=== PATIENT | female | born 1950 | race Two or more races ===

== ENCOUNTER 2020-06-28 15:25 | Outpatient (REF) | payer MEDICARE, SELFPAY ==
--- NOTE | 2020-06-28 15:34 | XR_ITS ---
EXAMINATION: XR HIP, RIGHT CLINICAL INFORMATION: Right hip pain COMPARISON: None TECHNIQUE: Two views of the right hip. FINDINGS: No fracture or dislocation. The right hip is well aligned. The joint space is maintained. Subchondral sclerosis is present. The right hemipelvis is intact. The bowel gas pattern is unremarkable. XR/XR hip RT min 2V IMPRESSION: Mild degenerative change of the right hip.
== END 2020-06-28 15:26 | disposition home or self-care (01) ==
LOC: HO.XRAY 15:25
PROVIDERS: PCP Family Medicine; Visit Provider Family Medicine
DX: M25.551 Pain in right hip (principal)
CPT/HCPCS: 73502

== ENCOUNTER → 2020-08-14 12:19 | Outpatient (BNVA) | payer MEDICARE, SELFPAY | PROVIDERS: PCP Family Medicine; Visit Provider Orthopaedic Surgery | DX: M25.551 Pain in right hip (principal) | CPT/HCPCS: 99202 ==

== ENCOUNTER 2020-10-25 10:32 | Outpatient (REF) | payer MEDICARE, SELFPAY ==
--- NOTE | ~2020-10-25 | MM_ITS ---
EXAMINATION: MM SCREENING DIGITAL BREAST TOMOSYNTHESIS, BILATERAL CLINICAL INFORMATION: Screening. Asymptomatic. The lifetime risk of breast cancer based on the Tyrer-Cuzick Model is 2.6%. COMPARISON: Mammography: December 20, 2019 and studies dating back to May 21, 2017 TECHNIQUE: Digital breast tomosynthesis is performed in both the craniocaudal and mediolateral oblique views along with computer-aided detection (CAD). Synthesized 2D images are generated from the tomosynthesis. Additional right exaggerated craniocaudal view performed. FINDINGS: The breasts are almost entirely fatty (ACR BI-RADS breast composition Category a). There are no significant masses, abnormal calcifications, or other abnormalities. MM/MM tomosynthesis screening BI IMPRESSION: There are no significant changes from prior study. ASSESSMENT: BI-RADS 1: Negative RECOMMENDATION: Routine annual mammography screening. This patient's information was entered into a reminder system with a target due date for their next mammogram.
== END 2020-10-25 10:33 | disposition home or self-care (01) ==
LOC: HO.MAMMO 10:32
PROVIDERS: Visit Provider Family Medicine
DX: Z12.31 Encounter for screening mammogram for malignant neoplasm of breast (principal)
CPT/HCPCS: 77063; 77067

== ENCOUNTER 2021-01-04 12:26 | Outpatient (REF) | payer MEDICARE, SELFPAY ==
--- NOTE | ~2021-01-04 | XR_ITS ---
EXAMINATION: XR LUMBOSACRAL SPINE CLINICAL INFORMATION: Left-sided sciatica COMPARISON: None TECHNIQUE: Three views of the lumbosacral spine. FINDINGS: There is curvature of the lower lumbar spine to the left. There is mild 3 mm anterior subluxation of L4 with respect L5. Bone alignment is otherwise normal. No fracture or dislocation is seen. There is multilevel degenerative disc disease. There is a lower lumbar spine facet arthritis. There is evidence of atherosclerotic disease. XR/XR lumbar spine 2-3V IMPRESSION: Curvature of the lumbar spine to the left and degenerative changes. No fracture seen.
[2021-01-04 13:17] LABS: MANUAL DIFF FLAG NO
[2021-01-04 13:20] LABS: Basophils Percent Auto 0.6 % (0-2); Eosinophils Absolute Auto 0.3 X10*3/uL (0.0-0.4); Eosinophils Percent Auto 4.5 % (0-4); Hematocrit 36.2 % (37-47); Hemoglobin 12.5 g/dl (12.0-16.0); Imm Gran Abs Auto 0.02 X10*3/uL (0.00-0.03); Imm Gran Pct Auto 0.3 % (0.0-0.4); Lymphocytes Absolute Auto 1.8 X10*3/uL (1.2-4.9); Lymphocytes Percent Auto 26.9 % (20-40); Mean Corpuscular HGB Conc 34.5 g/dl (31.0-35.0); Mean Corpuscular Hemoglobin 31.3 pg (27.0-33.0); Mean Corpuscular Volume 90.7 fL (80-98); Mean Platelet Volume 10.2 fL (9.4-12.3); Monocytes Absolute Auto 0.5 X10*3/uL (0.1-1.2); Monocytes Percent Auto 8.1 % (2-11); Neutrophils Absolute Auto 3.9 X10*3/uL (2.0-8.3); Neutrophils Percent Auto 59.6 % (45-73); Platelet Count 292 X10*3/uL (160-400); Red Blood Count 3.99 X10*6/uL (4.20-5.50); Red Cell Distribution Width 11.5 % (11.0-16.0); White Blood Count 6.5 X10*3/uL (4.8-10.8)
[2021-01-04 13:59] LABS: Anion Gap 11 (12-20); Blood Urea Nitrogen 26 mg/dL (9-16); Carbon Dioxide 28 mmol/L (22-29); Chloride 107 mmol/L (96-108); Erythrocyte Sedimentation Rate 33 MM/HR (0-20); Estimated Glomerular Filt Rate 57; Potassium 4.2 mmol/L (3.3-5.1); Sodium 142 mmol/L (135-145)
[2021-01-04 14:17] LABS: Glucose Urine UA NEG (NEG); Leukocyte Esterase Urine TRACE (NEG); Nitrite Urine NEG (NEG); PH 5.5 (5.0-8.0); Specific Gravity - Urine >= 1.030 (1.005-1.025); Urine Blood NEG (NEG); Urine Ketones NEG (NEG); Urine Protein NEG (NEG-TRACE)
[2021-01-04 14:18] LABS: Appearance Urine HAZY; Color Urine YELLOW
[2021-01-04 14:48] LABS: Bacteria Urine TRACE /LPF; Mucus Urine 1+ /LPF; RBC Urine 0 /HPF (0); Squamous Epithelial Cell Urine 1+ /LPF
[2021-01-05 13:36] LABS: IgA 569 mg/dL (70-320); IgG 1198 mg/dL (600-1540); IgM 105 mg/dL (50-300)
[2021-01-07 22:06] LABS: Prot Elec - Albumin 4.1 g/dL (3.8-4.8); Prot Elec - Alpha1 0.3 g/dL (0.2-0.3); Prot Elec - Alpha2 0.8 g/dL (0.5-0.9); Prot Elec - Beta 1 0.5 g/dL (0.4-0.6); Prot Elec - Beta 2 0.6 g/dL (0.2-0.5); Prot Elec - Total Protein 7.2 g/dL (6.1-8.1)
== END 2021-01-04 12:27 | disposition home or self-care (01) ==
LOC: HO.LAB 12:26
PROVIDERS: PCP Family Medicine; Visit Provider Family Medicine
DX: I10 Essential (primary) hypertension (principal); I77.6 Arteritis, unspecified; M54.32 Sciatica, left side
CPT/HCPCS: 36415; 72100; 80051; 81001; 82565; 82784; 84155; 84165; 84520; 85025; 85652

== ENCOUNTER 2021-07-01 09:56 | Day surgery (SDC) | payer MEDICARE, SELFPAY ==
--- NOTE | 2021-06-17 11:18 | CONS_ITS ---
DATE OF SERVICE: 07/01/2021 HISTORY OF PRESENT ILLNESS: This is a 71-year-old female who presents to my office on the 14 of June for preoperative consultation for cataract surgery booked for the 01 of July. She has generally been feeling okay. Her chief complaint is, intermittently her legs ache on ambulation, which is not a new problem. I reviewed her records and medications. PAST MEDICAL HISTORY: Includes high blood pressure, question of asthma (not anything recent), borderline cholesterol. She does have some lumbosacral degenerative changes and little spinal scoliosis, some obesity. Her more interesting problem is that, back about 8 years ago in [place], she had worked up for the fevers, arthralgias and rash and she was diagnosed as leukocytoclastic vasculitis. She was treated for that and has successfully put this under control. She has had very little problems since that time. A full workup was done at that time and I have all those results in my chart. Since she has become my patient, which is only the last few year, she moved here. She has done quite well. In looking back over all of her workups, she had an elevated C3 complement, but a normal C4. She had rheumatoid factor positive, but CCP negative. She was P and C ANCA negative. Hep B, C negative. Sjogren's syndrome and antiphospholipid syndrome negative. 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 Her present medications are mostly directed to her blood pressures. She is on diltiazem 360 mg daily and lisinopril 10 mg. She takes glucosamine for general arthritic pain and vitamin D and calcium, and that is about it for her medications. In general, the patient has been feeling better lately. Back has been bothering her too much and legs are not as bad as they used to be, although they still aches sometimes, does not specifically when she is walking. She has no numbness in legs. REVIEW OF SYSTEMS: SKIN: She has had no rashes of any kind. EAR, NOSE AND THROAT: Unremarkable EXTREMITIES: She has no edema. Aching in her legs are diffuse and very mild, nonspecific, only with ambulation, there are no signs of claudication. PULMONARY: No shortness of breath or wheezing. No history of asthma, but it has not been an issue in recent years. : She has some urge incontinence occasionally, but generally speaking she has no other symptoms. CARDIOVASCULAR: No chest pain or palpitations. NEURO: No headaches, dizziness, or falls. She thinks she off balance little bit from her legs, but on testing, we found that is not to be the case. GI: No heartburn or bowel changes. Other review of systems, which is relative to her diagnosis 8 years ago, she has no fevers or night sweats or any unusual skin changes. SOCIAL HISTORY: She is a nonsmoker, nondrinker. PHYSICAL EXAMINATION: GENERAL: We find pleasant, obese white female, in no acute distress. VITAL SIGNS: Her weight is 164, her height is 4 feet 11 inches. Her blood pressure is 132/82. HEENT: Conjunctivae pink, sclerae white. Mucous membranes are moist. Ears are clear. Left pupil is a little irregular, but there is some old left retinal detachment surgery. She does have arcus senilis. SKIN: No rashes, no skin changes, no petechiae or any other significant findings of vasculitis. NECK: Without lymphadenopathy, thyromegaly or neck vein distention. Carotids are 1+ without bruits. LUNGS: Clear. HEART: Sinus rhythm, 70. No murmurs, lifts, thrills, or abnormal heart sounds. ABDOMEN: Soft, nontender. No masses or organomegaly. RECTAL: Reveals no masses and hem negative. BACK: Unremarkable. LEGS: Palpably negative. She has some venous insufficiency without edema. She has minimal osteoarthritis. Distal pulses are 2+. Complete neurologic examination is intact. DIAGNOSES: 1. Hypertension. 2. Leukocytoclastic vasculitis present, inactive. 3. Osteoporosis by bone mineral density (T-score is less than -3). Takes calcium and vitamin D for that. 4. Remote history of asthma. 5. Nonspecific leg symptoms, which may or may not be related to neuropathy and/or sciatica. 6. High cholesterol, controlled by diet. 7. Positive rheumatoid factor without evidence of rheumatoid arthritis 8. Chronic venous insufficiency. PLAN: The patient is relatively stable. She has had no significant cardiovascular symptoms or signs of any rheumatoid disorder. She was cleared for surgery as she is low risk surgery and she is a low risk patient. MD DILAN Vela/MANJEETL / [phone] MTDD
[2021-06-24 10:00] VITALS: BMI 32.9
--- NOTE | 2021-06-28 08:33 | MHC.SHP ---
Pre-Procedural Eval Section A Date of Service: 06/28/21 The patient is an INPATIENT: No Changes since office visit: No Cold of Flu in the past 2 weeks, No New Medical Problems, No Changes in Medication and No Patient answered all questions The History & Physical has been completed within 30 days and I have reviewed it.: Yes Section B Chief Complaint: Left eye Cataract Allergies: Allergies Allergy/AdvReac Type Severity Reaction Status Date / Time No Known Allergies Allergy Verified 06/24/21 10:00 Plan Diagnosis/Plan: Unchanged I have reviewed the history and physical and performed a pertinent physical examination on my patient. No changes have occurred unless specified.
[2021-07-01 11:54] VITALS: BP 153/71; PULSE 67; RESP 18; TEMP 36.2; O2SAT 98
[2021-07-01] MEDS: Tetracaine HCl/PF 0.5% Oph Sol 4 ML DROPS 1 DROP EYE-LEFT (12:00)
[2021-07-01] MEDS: Lactated Ringers 500 ML 50 ML IVCONT (12:00)
[2021-07-01] MEDS: Phenylephrine HCL 2.5% Oph SoL 2 ML BOTTLE 1 DROP EYE-LEFT ×3 (12:01→12:03)
[2021-07-01] MEDS: Tropicamide 1 % Ophth Sol 3 ML BTL 1 DROP EYE-LEFT ×3 (12:01→12:03)
--- NOTE | 2021-07-01 12:27 | HO.ANESPROP2 ---
HPI - Anesthesia Eval Consult details Narrative: left eye cataract PMFSH Active Problems Active Problems: All Active Problems (Updated 06/24/21 @ 09:37 by Connie Wilson RN) Trochanteric bursitis, right hip (Acute) Past Medical History Medical History (Updated 06/24/21 @ 09:37 by Connie Wilson RN) Elevated cholesterol Hypertension Leg pain, bilateral Leukocytoclastic vasculitis Osteoporosis Family History Family history of problems with anesthesia: No Surgical History Surgical History (Updated 06/24/21 @ 09:59 by Connie Wilson RN) History of detached retina repair S/P carpal tunnel release History of Problems with Anesthesia: No Social History Social History (Updated 08/14/20 @ 12:43 by Naomi Underwood CMA) Patient Tobacco Use Status: Never used Tobacco Are you DNR?: No Advance Directives: No Advance Directives Information Provided: Yes Advance Directives on File: No Current occupation: Right [employer] Meds Allergies Allergy/AdvReac Type Severity Reaction Status Date / Time No Known Allergies Allergy Verified 06/24/21 10:00 Active Medications: Current Medications Lactated Ringer's (Lr) 500 mls @ 50 mls/hr IVCONT .Q10H EDEL Last Admin: 07/01/21 12:00 Dose: 50 mls/hr Documented by: Povidone Iodine (Povidone Iodine 5 % Ophth Soln 30 Ml Bottle) 1 appl EYE-LEFT PREOP PRN PRN Reason: Pre-Op Surgical Implant Prophy Home Medications Medication Instructions Recorded Confirmed Last Taken Type glucosamine HCl 500 mg tablet 500 mg PO DAILY 08/14/20 06/24/21 Unknown History ibuprofen 200 mg tablet 400 mg PO Q8H PRN 08/14/20 06/24/21 Unknown History cholecalciferol (vitamin D3) 50 1 cap PO DAILY 06/24/21 06/24/21 Unknown History mcg (2,000 unit) capsule (Vitamin D3) diltiazem HCl 360 mg 1 cap PO DAILY 06/24/21 06/24/21 Unknown History capsule,extended release 24 hr lisinopril 10 mg tablet 1 tab PO DAILY 06/24/21 06/24/21 Unknown History Exam Exam Date and Time: July 01, 2021 1227 Height,Weight and Vital Signs: Height 4 ft 11 in Weight 73.936 kg Last Vital Signs Temp 97.2 F 07/01/21 11:54 Pulse 67 07/01/21 11:54 Resp 18 07/01/21 11:54 BP 153/71 H 07/01/21 11:54 Pulse Ox 98 07/01/21 11:54 Airway Mallampati Class: II TM Dist: >3cm Neck ROM: Full Denture: Upper and Lower Loose/Missing/Broken Teeth: No Heart: [id number] Lungs: cta b/l Assessment and Plan Assessment Anesthesia Assessment: Anesthesia Plan Discussed and Chart Reviewed Final Anesthetic Review Family History of Problems with Anesthesia: No History of Problems with Anesthesia: No NPO: Yes ASA Class: III Final Preanesthetic Review: No Changes in Pt Med Stat, Meds/Allgs Chart Reviewed, Consent Obtained/Reviewed and Anes Risks/Benef Reviewed Patient Risk: Intermediate Procedure Risk: Low Assessment/Block/Sedation in SS: Assess/Block/Sedation-SS Anesthetic Plan Anesthetic Plan: MAC: and Agree w/ Assess. and Plan Disposition: Standard PACU
--- NOTE | 2021-07-01 13:13 | HO.PNOPHT ---
Ophthalmology Procedure Procedure Date of Service: 07/01/21 Ophthalmology Viscoelastic: Healon Duet Dual Pack Pro Ophthalmology Lenses: TECNIS [id number] (20.5) Procedure Notes: PREOPERATIVE DIAGNOSIS: Decreased visual acuity left eye secondary to cataract POSTOPERATIVE DIAGNOSIS: Same PROCEDURE: Left cataract extraction with intraocular lens insertion with Anterior Synichialysis SURGEON: Everton Isabel M.D. ANESTHESIA: Topical/MAC ESTIMATED BLOOD LOSS: None COMPLICATIONS: None After obtaining informed consent, the patient was brought to the operation room suite and placed in the supine position. After adequate sedation per anesthesia, topical drops of Tetracaine were given to the left eye. The eye was then prepped and draped in the usual sterile fashion. The operating room microscope was then positioned over the operative eye and a lid speculum placed. A paracentesis was created. Viscoelastic was then instilled into the anterior chamber. A three plane incision was then created temporally, utilizing a 2.85 mm keratome. Anterior synichiae required synichialysis after MPF Lidocaine 1% 0.5 ml. was instilled.Capsulotomy forceps were then utilized to create a circular tear capsulotomy. Hydrodissection and hydrodelineation were carried out until adequate mobilization of the nucleus occurred. Phacoemulsification was then utilized to remove the dense central nucleus followed by removal of the cortical material utilizing the automated aspiration irrigation unit. Viscoat elastic was instilled into the posterior capsular bag followed by placement of a posterior chamber intraocular lens without difficulty. The residual Viscoat elastic was then removed utilizing the automated IA machine. The wound was check and found to be watertight. The patient tolerated the procedure well and the lid speculum was removed. Intracameral injection of Vigamox 0.1 mL followed by a subtenon injection of Kenalog-40 0.2 mL were administered. The patient will be seen in the a.m.
[2021-07-01 13:42] VITALS: BP 135/62; PULSE 63; RESP 12; TEMP 36.5; O2SAT 98
== END 2021-07-01 13:50 | disposition home or self-care (01) ==
PROVIDERS: PCP Family Medicine; Visit Provider Ophthalmology
PROC: (CPT 66985; principal; 2021-07-01 13:00)
DX: H25.12 Age-related nuclear cataract, left eye (principal); H52.4 Presbyopia; I10 Essential (primary) hypertension; M31.0 Hypersensitivity angiitis; M81.0 Age-related osteoporosis without current pathological fracture; E78.00 Pure hypercholesterolemia, unspecified; Z79.899 Other long term (current) drug therapy
CPT/HCPCS: 66984; J2250; J3010; J3300; V2632

== ENCOUNTER 2021-07-04 11:04 | Outpatient (REF) | payer MEDICARE, SELFPAY ==
[2021-07-04 11:29] LABS: MANUAL DIFF FLAG NO
[2021-07-04 11:56] LABS: Basophils Percent Auto 0.5 % (0-2); Eosinophils Absolute Auto 0.1 X10*3/uL (0.0-0.4); Eosinophils Percent Auto 0.8 % (0-4); Hematocrit 39.2 % (37.0-47.0); Hemoglobin 12.9 g/dl (12.0-16.0); Imm Gran Abs Auto 0.02 X10*3/uL (0.00-0.03); Imm Gran Pct Auto 0.3 % (0.0-0.4); Lymphocytes Absolute Auto 1.7 X10*3/uL (1.2-4.9); Lymphocytes Percent Auto 27.3 % (20-40); Mean Corpuscular HGB Conc 32.9 g/dl (31.0-35.0); Mean Corpuscular Hemoglobin 29.9 pg (27.0-33.0); Mean Platelet Volume 10.3 fL (9.4-12.3); Monocytes Absolute Auto 0.5 X10*3/uL (0.1-1.2); Monocytes Percent Auto 8.5 % (2-11); Neutrophils Absolute Auto 3.9 x10*3/uL (2.0-8.3); Neutrophils Percent Auto 62.6 % (45-73); Platelet Count 322 X10*3/uL (160-400); Red Blood Count 4.31 X10*6/uL (4.20-5.50); Red Cell Distribution Width 11.8 % (11.0-16.0); White Blood Count 6.3 X10*3/uL (4.8-10.8)
[2021-07-04 12:30] LABS: Erythrocyte Sedimentation Rate 38 MM/HR (0-20)
[2021-07-04 12:47] LABS: Alanine Aminotransferase 19 U/L (0-31); Albumin Level 4.3 g/dL (3.5-5.0); Alkaline Phosphatase 108 U/L (39-117); Anion Gap 12 (12-20); Aspartate Amino Transferase 16 U/L (5-31); Bilirubin Total 0.4 mg/dL (0.0-1.0); Blood Urea Nitrogen 18 mg/dL (9-16); Calcium 10.1 mg/dL (8.4-10.2); Carbon Dioxide 25 mmol/L (22-29); Chloride 108 mmol/L (96-108); Estimated Glomerular Filt Rate 58; Glucose Random 88 mg/dL (60-115); Potassium 4.3 mmol/L (3.3-5.1); Sodium 141 mmol/L (135-145); Total Protein 7.8 g/dL (6.5-8.0)
[2021-07-05 13:21] LABS: Complement C3 116 mg/dL (83-193)
[2021-07-05 15:11] LABS: Cyclic Citrullinated Peptide <16 UNITS
[2021-07-05 19:21] LABS: IgA 650 mg/dL (70-320); IgG 1293 mg/dL (600-1540); IgM 118 mg/dL (50-300)
== END 2021-07-04 11:05 | disposition home or self-care (01) ==
LOC: HO.LAB 11:04
PROVIDERS: PCP Family Medicine; Visit Provider Family Medicine
DX: M05.9 Rheumatoid arthritis with rheumatoid factor, unspecified (principal); I10 Essential (primary) hypertension
CPT/HCPCS: 36415; 80053; 82784; 85025; 85652; 86160; 86200

== ENCOUNTER 2021-10-28 11:22 | Outpatient (REF) | payer MEDICARE, SELFPAY ==
--- NOTE | ~2021-10-28 | MM_ITS ---
EXAMINATION: MM SCREENING DIGITAL BREAST TOMOSYNTHESIS, BILATERAL CLINICAL INFORMATION: Screening. Asymptomatic. The lifetime risk of breast cancer based on the Tyrer-Cuzick Model is 3%. COMPARISON: Mammography: 10/25/2020, 10/20/2019, 10/15/2018 TECHNIQUE: Digital breast tomosynthesis is performed in both the craniocaudal and mediolateral oblique views along with computer-aided detection (CAD). Synthesized 2D images are generated from the tomosynthesis. FINDINGS: There are scattered areas of fibroglandular density (ACR BI-RADS breast composition Category b). There are no significant masses, abnormal calcifications, or other abnormalities. Parenchymal pattern is similar to prior studies. Small benign circumscribed nodules in the bilateral outer breasts are stable. There is oval parenchymal asymmetry anterior central 11:30 o'clock right breast similar to prior exams. No developing density or interval architectural abnormality. MM/MM tomosynthesis screening BI IMPRESSION: No mammographic evidence of malignancy. ASSESSMENT: BI-RADS 2: Benign RECOMMENDATION: Routine annual mammography screening. This patient's information was entered into a reminder system with a target due date for their next mammogram.
== END 2021-10-28 11:23 | disposition home or self-care (01) ==
LOC: HO.MAMMO 11:22
PROVIDERS: PCP Family Medicine; Visit Provider Family Medicine
DX: Z12.31 Encounter for screening mammogram for malignant neoplasm of breast (principal)
CPT/HCPCS: 77063; 77067

== ENCOUNTER 2021-12-24 11:53 | Outpatient (REF) | payer OTHER, SELFPAY ==
[2021-12-24 12:30] LABS: MANUAL DIFF FLAG NO
[2021-12-24 12:58] LABS: Basophils Percent Auto 0.2 % (0-2); Eosinophils Absolute Auto 0.1 X10*3/uL (0.0-0.4); Eosinophils Percent Auto 1.6 % (0-4); Hematocrit 38.4 % (37.0-47.0); Hemoglobin 12.7 g/dl (12.0-16.0); Imm Gran Abs Auto 0.03 X10*3/uL (0.00-0.03); Imm Gran Pct Auto 0.4 % (0.0-0.4); Lymphocytes Percent Auto 24.1 % (20-40); Mean Corpuscular HGB Conc 33.1 g/dl (31.0-35.0); Mean Corpuscular Hemoglobin 30.8 pg (27.0-33.0); Mean Corpuscular Volume 93.2 fL (80.0-98.0); Mean Platelet Volume 9.9 fL (9.4-12.3); Monocytes Absolute Auto 0.7 X10*3/uL (0.1-1.2); Monocytes Percent Auto 7.9 % (2-11); Neutrophils Absolute Auto 5.5 x10*3/uL (2.0-8.3); Neutrophils Percent Auto 65.8 % (45-73); Platelet Count 288 X10*3/uL (160-400); Red Blood Count 4.12 X10*6/uL (4.20-5.50); Red Cell Distribution Width 11.3 % (11.0-16.0); White Blood Count 8.4 X10*3/uL (4.8-10.8)
[2021-12-24 13:41] LABS: Erythrocyte Sedimentation Rate 26 MM/HR (0-20)
[2021-12-24 13:44] LABS: Anion Gap 10 (12-20); Blood Urea Nitrogen 25 mg/dL (9-16); Carbon Dioxide 29 mmol/L (22-29); Chloride 105 mmol/L (96-108); Estimated Glomerular Filt Rate 54; Potassium 4.4 mmol/L (3.3-5.1); Sodium 140 mmol/L (135-145)
== END 2021-12-24 11:54 | disposition home or self-care (01) ==
LOC: HO.LAB 11:53
PROVIDERS: PCP Family Medicine; Visit Provider Family Medicine
DX: I10 Essential (primary) hypertension (principal); I77.6 Arteritis, unspecified
CPT/HCPCS: 36415; 80051; 82565; 84520; 85025; 85652

== ENCOUNTER 2022-03-31 11:56 | Outpatient (REF) | payer OTHER, SELFPAY ==
[2022-03-31 12:00] VITALS: BP 141/94; PULSE 96; RESP 16; TEMP 36.4; O2SAT 94
[2022-03-31 12:01] VITALS: BMI 34.1
== END 2022-03-31 11:57 | disposition home or self-care (01) ==
LOC: HO.MS 11:56
PROVIDERS: PCP Family Medicine; Visit Provider Ophthalmology
PROC: (CPT 66821; principal; 2022-03-31 13:30)
DX: H26.492 Other secondary cataract, left eye (principal); H52.4 Presbyopia; I10 Essential (primary) hypertension; Z79.899 Other long term (current) drug therapy
CPT/HCPCS: 66821

== ENCOUNTER 2022-07-04 12:03 | Outpatient (REF) | payer OTHER, SELFPAY ==
[2022-07-04 12:39] LABS: MANUAL DIFF FLAG NO
[2022-07-04 13:28] LABS: Basophils Absolute Auto 0.1 X10*3/uL (0.0-0.2); Basophils Percent Auto 0.7 % (0-2); Eosinophils Absolute Auto 0.3 X10*3/uL (0.0-0.4); Eosinophils Percent Auto 3.8 % (0-4); Hematocrit 39.2 % (37.0-47.0); Hemoglobin 13.2 g/dl (12.0-16.0); Imm Gran Abs Auto 0.04 X10*3/uL (0.00-0.03); Imm Gran Pct Auto 0.5 % (0.0-0.4); Lymphocytes Absolute Auto 2.2 X10*3/uL (1.2-4.9); Lymphocytes Percent Auto 29.2 % (20-40); Mean Corpuscular HGB Conc 33.7 g/dl (31.0-35.0); Mean Corpuscular Hemoglobin 31.4 pg (27.0-33.0); Mean Corpuscular Volume 93.1 fL (80.0-98.0); Monocytes Absolute Auto 0.6 X10*3/uL (0.1-1.2); Monocytes Percent Auto 7.9 % (2-11); Neutrophils Absolute Auto 4.4 x10*3/uL (2.0-8.3); Neutrophils Percent Auto 57.9 % (45-73); Platelet Count 290 X10*3/uL (160-400); Red Blood Count 4.21 X10*6/uL (4.20-5.50); Red Cell Distribution Width 11.9 % (11.0-16.0); White Blood Count 7.6 X10*3/uL (4.8-10.8)
[2022-07-04 13:44] LABS: Anion Gap 15 (12-20); Blood Urea Nitrogen 26 mg/dL (9-16); Carbon Dioxide 25 mmol/L (22-29); Chloride 106 mmol/L (96-108); Estimated Glomerular Filt Rate 44; Potassium 4.1 mmol/L (3.3-5.1); Sodium 142 mmol/L (135-145)
[2022-07-04 14:07] LABS: Erythrocyte Sedimentation Rate 26 MM/HR (0-20)
[2022-07-07 10:51] LABS: IgA 491 mg/dL (70-320); IgG 1227 mg/dL (600-1540); IgM 113 mg/dL (50-300)
== END 2022-07-04 12:04 | disposition home or self-care (01) ==
LOC: HO.LAB 12:03
PROVIDERS: PCP Family Medicine; Visit Provider Family Medicine
DX: I10 Essential (primary) hypertension (principal); I77.6 Arteritis, unspecified
CPT/HCPCS: 36415; 80051; 82565; 82784; 84520; 85025; 85652

== ENCOUNTER 2022-11-28 11:13 | Outpatient (REF) | payer OTHER, SELFPAY ==
[2022-11-28 12:56] LABS: Erythrocyte Sedimentation Rate 34 MM/HR (0-20)
[2022-11-28 13:33] LABS: Anion Gap 15 (12-20); Blood Urea Nitrogen 20 mg/dL (9-16); C Reactive Protein 0.47 mg/dL (< or = 0.50); Carbon Dioxide 25 mmol/L (22-29); Chloride 107 mmol/L (96-108); Estimated Glomerular Filt Rate 36; Potassium 4.5 mmol/L (3.3-5.1); Rheumatoid Factor 15.2 IU/mL (<15.0); Sodium 142 mmol/L (135-145)
[2022-12-01 12:43] LABS: IgA 568 mg/dL (70-320); IgG 1297 mg/dL (600-1540); IgM 114 mg/dL (50-300)
[2022-12-02 23:19] LABS: Prot Elec - Albumin 4.1 g/dL (3.8-4.8); Prot Elec - Alpha1 0.3 g/dL (0.2-0.3); Prot Elec - Alpha2 0.9 g/dL (0.5-0.9); Prot Elec - Beta 1 0.5 g/dL (0.4-0.6); Prot Elec - Beta 2 0.7 g/dL (0.2-0.5); Prot Elec - Gamma 1.1 g/dL (0.8-1.7); Prot Elec - Total Protein 7.5 g/dL (6.1-8.1)
== END 2022-11-28 11:14 | disposition home or self-care (01) ==
LOC: HO.LAB 11:13
PROVIDERS: Visit Provider Family Medicine
DX: I10 Essential (primary) hypertension (principal); I77.6 Arteritis, unspecified; M06.9 Rheumatoid arthritis, unspecified
CPT/HCPCS: 36415; 80051; 82565; 82784; 84165; 84520; 85652; 86140; 86431

== ENCOUNTER 2022-12-17 10:12 | Outpatient (REF) | payer OTHER, SELFPAY ==
--- NOTE | ~2022-12-17 | MM_ITS ---
EXAMINATION: MM SCREENING DIGITAL BREAST TOMOSYNTHESIS, BILATERAL CLINICAL INFORMATION: Screening. Asymptomatic. The lifetime risk of breast cancer based on the Tyrer-Cuzick Model is 2.5%. COMPARISON: Mammography: October 28, 2021 and studies dating back to May 21, 2017 TECHNIQUE: Digital breast tomosynthesis is performed in both the craniocaudal and mediolateral oblique views along with computer-aided detection (CAD). Synthesized 2D images are generated from the tomosynthesis. FINDINGS: There are scattered areas of fibroglandular density (ACR BI-RADS breast composition Category b). There are no significant masses, abnormal calcifications, or other abnormalities. MM/MM tomosynthesis screening BI IMPRESSION: No significant changes from prior exam. ASSESSMENT: BI-RADS 1: Negative RECOMMENDATION: Routine annual mammography screening. This patient's information was entered into a reminder system with a target due date for their next mammogram.
== END 2022-12-17 10:13 | disposition home or self-care (01) ==
LOC: HO.MAMMO 10:12
PROVIDERS: PCP Family Medicine; Visit Provider Family Medicine
DX: Z12.31 Encounter for screening mammogram for malignant neoplasm of breast (principal)
CPT/HCPCS: 77063; 77067

== ENCOUNTER 2023-04-15 11:08 | Outpatient (REF) | payer OTHER, SELFPAY ==
--- NOTE | ~2023-04-15 | XR_ITS ---
EXAMINATION: XR LUMBOSACRAL SPINE CLINICAL INFORMATION: Back pain COMPARISON: 06/28/2020 TECHNIQUE: Three views of the lumbosacral spine. FINDINGS: Evaluation is limited by body habitus. There is a convex left lower lumbar curvature which may be secondary to a larger thoracolumbar scoliosis. No fracture or dislocation is evident. Vertebral bodies are in alignment through L4. Mild disc space narrowing and endplate degenerative change is seen above the L4 level. There is hypertrophic degenerative facet arthropathy. The posterior elements appear intact through L3. Spinous processes are not seen in L4 and L5 suggesting previous laminectomy. There is degenerative facet arthropathy at these levels. There is moderate disc space narrowing at L4-5 and L5-S1 and there is slight anterolisthesis of L4 and L5 which appears unchanged There is atherosclerotic plaque in the abdominal aorta without evidence of aneurysmal dilatation. There is a stable rounded soft tissue calcification projected over the right aspect of the superior sacrum. XR/XR lumbar spine 2-3V IMPRESSION: Scoliosis with degenerative disc and facet disease. No significant interval change.
[2023-04-15 11:30] LABS: MANUAL DIFF FLAG NO
[2023-04-15 11:56] LABS: Basophils Percent Auto 0.6 % (0-2); Eosinophils Absolute Auto 0.2 X10*3/uL (0.0-0.4); Eosinophils Percent Auto 3.5 % (0-4); Hematocrit 39.4 % (37.0-47.0); Hemoglobin 13.2 g/dl (12.0-16.0); Imm Gran Abs Auto 0.02 X10*3/uL (0.00-0.03); Imm Gran Pct Auto 0.3 % (0.0-0.4); Lymphocytes Absolute Auto 2.4 X10*3/uL (1.2-4.9); Lymphocytes Percent Auto 37.2 % (20-40); Mean Corpuscular HGB Conc 33.5 g/dl (31.0-35.0); Mean Corpuscular Hemoglobin 31.1 pg (27.0-33.0); Mean Corpuscular Volume 92.7 fL (80.0-98.0); Mean Platelet Volume 9.8 fL (9.4-12.3); Monocytes Absolute Auto 0.5 X10*3/uL (0.1-1.2); Monocytes Percent Auto 7.8 % (2-11); Neutrophils Absolute Auto 3.3 x10*3/uL (2.0-8.3); Neutrophils Percent Auto 50.6 % (45-73); Platelet Count 327 X10*3/uL (160-400); Red Blood Count 4.25 X10*6/uL (4.20-5.50); Red Cell Distribution Width 11.5 % (11.0-16.0); White Blood Count 6.5 X10*3/uL (4.8-10.8)
[2023-04-15 12:30] LABS: Erythrocyte Sedimentation Rate 34 MM/HR (0-20)
[2023-04-15 12:42] LABS: Anion Gap 13 (12-20); Blood Urea Nitrogen 28 mg/dL (9-16); Carbon Dioxide 25 mmol/L (22-29); Chloride 106 mmol/L (96-108); Estimated Glomerular Filt Rate 38; Potassium 3.9 mmol/L (3.3-5.1); Sodium 140 mmol/L (135-145)
== END 2023-04-15 11:09 | disposition home or self-care (01) ==
LOC: HO.LAB 11:08
PROVIDERS: PCP Family Medicine; Visit Provider Family Medicine
DX: I10 Essential (primary) hypertension (principal); I77.6 Arteritis, unspecified; R27.0 Ataxia, unspecified; M54.9 Dorsalgia, unspecified
CPT/HCPCS: 36415; 72100; 80051; 82565; 84520; 85025; 85652

== ENCOUNTER 2023-09-16 10:25 | Outpatient (REF) | payer OTHER, SELFPAY ==
[2023-09-16 10:47] LABS: MANUAL DIFF FLAG NO
[2023-09-16 11:58] LABS: Estimated Average Glucose 126 mg/dL; Hemoglobin A1C 148.3654 umol/L
[2023-09-16 12:00] LABS: Basophils Absolute Auto 0.1 X10*3/uL (0.0-0.2); Basophils Percent Auto 0.8 % (0-2); Eosinophils Absolute Auto 0.2 X10*3/uL (0.0-0.4); Eosinophils Percent Auto 2.5 % (0-4); Hemoglobin 13.4 g/dl (12.0-16.0); Imm Gran Abs Auto 0.02 X10*3/uL (0.00-0.03); Imm Gran Pct Auto 0.3 % (0.0-0.4); Lymphocytes Percent Auto 31.9 % (20-40); Mean Corpuscular HGB Conc 33.5 g/dl (31.0-35.0); Mean Corpuscular Hemoglobin 30.9 pg (27.0-33.0); Mean Corpuscular Volume 92.4 fL (80.0-98.0); Monocytes Absolute Auto 0.5 X10*3/uL (0.1-1.2); Monocytes Percent Auto 7.1 % (2-11); Neutrophils Absolute Auto 3.6 x10*3/uL (2.0-8.3); Neutrophils Percent Auto 57.4 % (45-73); Platelet Count 283 X10*3/uL (160-400); Red Blood Count 4.33 X10*6/uL (4.20-5.50); Red Cell Distribution Width 11.5 % (11.0-16.0); White Blood Count 6.3 X10*3/uL (4.8-10.8)
[2023-09-16 12:22] LABS: Rheumatoid Factor 15.9 IU/mL (<15.0)
[2023-09-16 12:27] LABS: Alanine Aminotransferase 38 U/L (0-31); Anion Gap 14 (12-20); Aspartate Amino Transferase 35 U/L (5-31); Blood Urea Nitrogen 30 mg/dL (9-16); Carbon Dioxide 25 mmol/L (22-29); Chloride 105 mmol/L (96-108); Cholesterol 276 mg/dL (<200); Estimated Glomerular Filt Rate 46; HDL Cholesterol 46 mg/dL (>40); LDL Cholesterol Calculated 201 mg/dL (<100); Potassium 4.2 mmol/L (3.3-5.1); Sodium 140 mmol/L (135-145); Triglycerides 145 mg/dL (<150)
[2023-09-16 12:35] LABS: Erythrocyte Sedimentation Rate 34 MM/HR (0-20)
== END 2023-09-16 10:26 | disposition home or self-care (01) ==
LOC: HO.LAB 10:25
PROVIDERS: PCP Family Medicine; Visit Provider Family Medicine
DX: I10 Essential (primary) hypertension (principal); E78.00 Pure hypercholesterolemia, unspecified; I77.6 Arteritis, unspecified; M06.9 Rheumatoid arthritis, unspecified
CPT/HCPCS: 36415; 80051; 80061; 82565; 83036; 84450; 84460; 84520; 85025; 85652; 86431

== ENCOUNTER 2023-10-06 10:08 | Outpatient (REF) | payer OTHER, SELFPAY ==
[2023-10-06 10:30] LABS: MANUAL DIFF FLAG NO
[2023-10-06 10:46] LABS: Basophils Absolute Auto 0.1 X10*3/uL (0.0-0.2); Basophils Percent Auto 0.6 % (0-2); Eosinophils Absolute Auto 0.2 X10*3/uL (0.0-0.4); Eosinophils Percent Auto 2.2 % (0-4); Hematocrit 39.2 % (37.0-47.0); Imm Gran Abs Auto 0.03 X10*3/uL (0.00-0.03); Imm Gran Pct Auto 0.4 % (0.0-0.4); Lymphocytes Absolute Auto 2.3 X10*3/uL (1.2-4.9); Lymphocytes Percent Auto 29.8 % (20-40); Mean Corpuscular HGB Conc 33.2 g/dl (31.0-35.0); Mean Corpuscular Hemoglobin 31.2 pg (27.0-33.0); Mean Platelet Volume 9.1 fL (9.4-12.3); Monocytes Absolute Auto 0.5 X10*3/uL (0.1-1.2); Neutrophils Absolute Auto 4.8 x10*3/uL (2.0-8.3); Platelet Count 345 X10*3/uL (160-400); Red Blood Count 4.17 X10*6/uL (4.20-5.50); Red Cell Distribution Width 11.3 % (11.0-16.0); White Blood Count 7.8 X10*3/uL (4.8-10.8)
[2023-10-06 11:24] LABS: Alanine Aminotransferase 29 U/L (0-31); Anion Gap 15 (12-20); Aspartate Amino Transferase 27 U/L (5-31); Blood Urea Nitrogen 25 mg/dL (9-16); Carbon Dioxide 26 mmol/L (22-29); Chloride 104 mmol/L (96-108); Cholesterol 227 mg/dL (<200); Estimated Glomerular Filt Rate 38; HDL Cholesterol 40 mg/dL (>40); LDL Cholesterol Calculated 144 mg/dL (<100); Potassium 4.5 mmol/L (3.3-5.1); Sodium 140 mmol/L (135-145); Triglycerides 216 mg/dL (<150)
[2023-10-06 11:27] LABS: Erythrocyte Sedimentation Rate 34 MM/HR (0-20)
[2023-10-07 14:52] LABS: IgA 460 mg/dL (70-320); IgG 1188 mg/dL (600-1540); IgM 118 mg/dL (50-300)
== END 2023-10-06 10:09 | disposition home or self-care (01) ==
LOC: HO.LAB 10:08
PROVIDERS: Visit Provider Family Medicine
DX: I10 Essential (primary) hypertension (principal); E78.00 Pure hypercholesterolemia, unspecified; I77.6 Arteritis, unspecified; M06.9 Rheumatoid arthritis, unspecified
CPT/HCPCS: 36415; 80051; 80061; 82565; 82784; 84450; 84460; 84520; 85025; 85652; 86334

== ENCOUNTER 2023-12-22 11:29 | Outpatient (REF) | payer OTHER, SELFPAY | END 2023-12-22 11:30 | disposition home or self-care (01) | LOC: HO.MAMMO 11:29 | PROVIDERS: PCP Family Medicine; Visit Provider Family Medicine | DX: Z12.31 Encounter for screening mammogram for malignant neoplasm of breast (principal) | CPT/HCPCS: 77063; 77067 ==

== ENCOUNTER → 2023-12-22 11:45 | Outpatient (BNV) | payer OTHER, SELFPAY | PROVIDERS: PCP Family Medicine; Visit Provider Radiology Diagnostic Radiology | DX: Z12.31 Encounter for screening mammogram for malignant neoplasm of breast (principal) | CPT/HCPCS: 77063; 77067 ==

== ENCOUNTER 2024-03-24 10:02 | Outpatient (REF) | payer OTHER, SELFPAY ==
[2024-03-24 11:43] LABS: Alanine Aminotransferase 30 U/L (0-31); Anion Gap 12 (12-20); Aspartate Amino Transferase 25 U/L (5-31); Blood Urea Nitrogen 24 mg/dL (9-16); Carbon Dioxide 30 mmol/L (22-29); Chloride 105 mmol/L (96-108); Cholesterol 140 mg/dL (<200); Estimated Glomerular Filt Rate 39; HDL Cholesterol 46 mg/dL (>40); LDL Cholesterol Calculated 81 mg/dL (<100); Potassium 3.9 mmol/L (3.3-5.1); Sodium 143 mmol/L (135-145); Triglycerides 68 mg/dL (<150)
[2024-03-25 22:13] LABS: IgA 507 mg/dL (70-320); IgG 1304 mg/dL (600-1540); IgM 115 mg/dL (50-300)
== END 2024-03-24 10:03 | disposition home or self-care (01) ==
LOC: HO.LAB 10:02
PROVIDERS: PCP Family Medicine; Visit Provider Family Medicine
DX: I10 Essential (primary) hypertension (principal); E78.00 Pure hypercholesterolemia, unspecified; Z79.899 Other long term (current) drug therapy
CPT/HCPCS: 36415; 80051; 80061; 82550; 82565; 82784; 84450; 84460; 84520; 86334

== ENCOUNTER 2024-09-02 11:10 | Outpatient (REF) | payer OTHER, SELFPAY ==
[2024-09-02 11:30] LABS: MANUAL DIFF FLAG NO
[2024-09-02 11:47] LABS: Basophils Absolute Auto 0.1 X10*3/uL (0.0-0.2); Basophils Percent Auto 0.6 % (0-2); Eosinophils Absolute Auto 0.2 X10*3/uL (0.0-0.4); Eosinophils Percent Auto 2.9 % (0-4); Hematocrit 38.2 % (37.0-47.0); Hemoglobin 12.9 g/dl (12.0-16.0); Imm Gran Abs Auto 0.02 X10*3/uL (0.00-0.03); Imm Gran Pct Auto 0.2 % (0.0-0.4); Lymphocytes Absolute Auto 2.6 X10*3/uL (1.2-4.9); Mean Corpuscular HGB Conc 33.8 g/dl (31.0-35.0); Mean Corpuscular Hemoglobin 31.1 pg (27.0-33.0); Mean Platelet Volume 9.5 fL (9.4-12.3); Monocytes Absolute Auto 0.6 X10*3/uL (0.1-1.2); Monocytes Percent Auto 7.6 % (2-11); Neutrophils Absolute Auto 4.8 x10*3/uL (2.0-8.3); Neutrophils Percent Auto 57.7 % (45-73); Platelet Count 328 X10*3/uL (160-400); Red Blood Count 4.15 X10*6/uL (4.20-5.50); Red Cell Distribution Width 11.6 % (11.0-16.0); White Blood Count 8.3 X10*3/uL (4.8-10.8)
[2024-09-02 12:28] LABS: Erythrocyte Sedimentation Rate 38 MM/HR (0-20)
== END 2024-09-02 11:11 | disposition home or self-care (01) ==
LOC: HO.LAB 11:10
PROVIDERS: PCP Family Medicine; Visit Provider Family Medicine
DX: D64.9 Anemia, unspecified (principal); L95.9 Vasculitis limited to the skin, unspecified
CPT/HCPCS: 36415; 85025; 85652

== ENCOUNTER 2024-12-27 11:16 | Outpatient (REF) | payer OTHER, SELFPAY | END 2024-12-27 11:17 | disposition home or self-care (01) | LOC: HO.MAMMO 11:16 | PROVIDERS: Visit Provider Family Medicine | DX: Z12.31 Encounter for screening mammogram for malignant neoplasm of breast (principal) | CPT/HCPCS: 77063; 77067 ==

== ENCOUNTER → 2024-12-27 11:30 | Outpatient (BNV) | payer OTHER, SELFPAY | PROVIDERS: Visit Provider Internal Medicine | DX: Z12.31 Encounter for screening mammogram for malignant neoplasm of breast (principal) | CPT/HCPCS: 77063; 77067 ==

== ENCOUNTER 2024-12-28 12:21 | Outpatient (REF) | payer OTHER, SELFPAY ==
[2024-12-28 12:37] LABS: MANUAL DIFF FLAG NO
[2024-12-28 13:12] LABS: Basophils Absolute Auto 0.1 X10*3/uL (0.0-0.2); Basophils Percent Auto 0.7 % (0-2); Eosinophils Absolute Auto 0.2 X10*3/uL (0.0-0.4); Eosinophils Percent Auto 2.4 % (0-4); Hematocrit 37.8 % (37.0-47.0); Hemoglobin 13.1 g/dl (12.0-16.0); Imm Gran Abs Auto 0.02 X10*3/uL (0.00-0.03); Imm Gran Pct Auto 0.2 % (0.0-0.4); Lymphocytes Absolute Auto 2.8 X10*3/uL (1.2-4.9); Lymphocytes Percent Auto 34.3 % (20-40); Mean Corpuscular HGB Conc 34.7 g/dl (31.0-35.0); Mean Corpuscular Volume 89.6 fL (80.0-98.0); Mean Platelet Volume 9.5 fL (9.4-12.3); Monocytes Absolute Auto 0.6 X10*3/uL (0.1-1.2); Monocytes Percent Auto 7.2 % (2-11); Neutrophils Absolute Auto 4.5 x10*3/uL (2.0-8.3); Neutrophils Percent Auto 55.2 % (45-73); Platelet Count 336 X10*3/uL (160-400); Red Blood Count 4.22 X10*6/uL (4.20-5.50); White Blood Count 8.2 X10*3/uL (4.8-10.8)
[2024-12-28 13:35] LABS: Alanine Aminotransferase 18 U/L (0-31); Anion Gap 17 (12-20); Aspartate Amino Transferase 24 U/L (5-31); Blood Urea Nitrogen 18 mg/dL (9-16); Carbon Dioxide 24 mmol/L (22-29); Chloride 105 mmol/L (96-108); Estimated Glomerular Filt Rate 41; Potassium 4.4 mmol/L (3.3-5.1); Sodium 142 mmol/L (135-145)
[2024-12-28 13:48] LABS: Erythrocyte Sedimentation Rate 43 MM/HR (0-20)
== END 2024-12-28 12:22 | disposition home or self-care (01) ==
LOC: HO.LAB 12:21
PROVIDERS: PCP Family Medicine; Visit Provider Family Medicine
DX: I10 Essential (primary) hypertension (principal); E78.00 Pure hypercholesterolemia, unspecified; Z79.899 Other long term (current) drug therapy
CPT/HCPCS: 36415; 80051; 82550; 82565; 84450; 84460; 84520; 85025; 85652

== ENCOUNTER 2025-04-05 11:19 | Outpatient (AMB) | payer OTHER, SELFPAY ==
--- NOTE | 2025-04-05 11:21 | A.OFFPC_ITS ---
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 She does have [facility] nurse following her at home. Hypercholesterolemia-has been without her atorvastatin 20 mg nightly since August as she states she ran out of the medication into not received refill. Given cholesterol levels were normal back in March, her CTA nurse questions whether she needs the medication though again she has not been the medication for 8 months. Hypertension-diltiazem, hydrochlorothiazide, lisinopril blood pressure slightly elevated 148/66. She tells me that she has not had her lisinopril since last week Vasculitis-no recent recurrence Concerns: States that last month, she had a mechanical fall, no head strike. She reports she had been experiencing back pain but this has improved. She does continue to have right knee pain since the fall and has been using a cane as she is concerned about falling again though she does deny any weakness or instability. She states then he has limited flexion. ROS: General: No fevers, malaise, unintentional weight loss HEENT: No blurred vision, diplopia. No sore throat, nasal congestion, rh inorrhea, sinus pain, ear pain Cardiovascular: No chest pain, palpitations, or leg edema Respiratory: No shortness of breath, wheezing, cough GI: No abdominal pain, nausea, vomiting, diarrhea, constipation, melena, hematochezia : No dysuria, hematuria, increased urinary frequency, decreased urinary output MSK: No myalgia, back pain.see hpi Neuro: No headaches, weakness, paresthesias Skin: No rashes or lesions EXAM: Constitutional - Awake and Alert, No apparent distress Eyes - PERRL Cardiovascular - S1S2, RRR, No edema Respiratory - Normal lung expansion, Normal respiratory effort, No respiratory distress, CTA bilaterally Extremities - no calf tenderness bilaterally, no swelling MSK-tenderness to palpation over the medial aspect of the right knee. No bony abnormality, joint laxity, erythema, warmth. Full extension, limited flexion Skin - Warm/Dry Neurological - Alert & oriented x3 Psychological - Appropriate affect [facility] Medical History (Updated 04/05/25 @ 12:02 by ELEAZAR Armas) Leg pain, bilateral Osteoporosis Leukocytoclastic vasculitis Elevated cholesterol Hypertension Surgical History (Updated 06/24/21 @ 09:59 by Connie Wilson RN) History of detached retina repair S/P carpal tunnel release Social History (Updated 08/14/20 @ 12:43 by Naomi Underwood CMA) Patient Tobacco Use Status: Never used Tobacco e-Cigarette/Vaping Use: Never Used Current occupation: Right Handed Questionnaire PHQ-9 Over the last 2 weeks, how often have you been bothered by any of the following problems? 1. Little interest or pleasure in doing things: not at all 2. Feeling down, depressed, or hopeless: not at all 3. Trouble falling or staying asleep, or sleeping too much: not at all 4. Feeling tired or having little energy: not at all 5. Poor appetite or overeating: not at all 6. Feeling bad about yourself - or that you are a failure or have let yourself or your family down: not at all 7. Trouble concentrating on things, such as reading the newspaper or watching television: not at all 8. Moving or speaking so slowly that other people could have noticed. Or the opposite - being so fidgety or restless that you have been moving around a lot more than usual: not at all 9. Thoughts that you would be better off or of hurting yourself in some way: not at all Total score: 0 Source: Developed by Drs. Jarod Morgan, Mago Garcias, Lazaro Lara and colleagues, with an educational penny from [employer] Thrive Questionnaire Date Thrive assessed: 04/05/25 I am a: Patient What is your living situation today?: I have a steady place to live Within the past 12 months, did the food you bought not last and you didn't have the money to get more?: Never true Within the past 12 months, did you worry whether your food would run out before you got money to buy more?: Never true Do you have trouble paying for medicines?: No Do you have trouble getting transportation to medical appointments?: No Do you have trouble paying your heating and electricity bill?: No Do you have trouble taking care of your child, family member or friend?: No Do you have trouble with day-to-day activities such as bathing, preparing meals, shopping, managing finances, etc.?: No Are you currently unemployed and looking for a job?: No Are you interested in more education?: No THRIVE Score: 0 AUDIT C Alcohol Use Questionnaire (AUDIT-C) 1. How often do you have a drink containing alcohol?: Never Total Score: 0 CORAL-7 AMB Questionnaire CORAL-7 Date CORAL - 7 assessed: 04/05/25 Feeling nervous, anxious, or on edge: 0 = Not at all Not being able to stop or control worryin = Not at all Worrying too much about different things: 0 = Not at all Trouble relaxin = Not at all Being so restless that it is hard to sit still: 0 = Not at all Becoming easily annoyed or irritable: 0 = Not at all Feeling afraid as if something awful might happen: 0 = Not at all Total CORAL-7 score (0-4 normal; 5-9 mild; 10-14 moderate; 15-21 severe): 0 Source: Developed by Drs. Jarod Morgan, Mago Garcias, Lazaro Lara and colleagues, with an educational penny from [employer] Physical exam (Primary Care) Vital Signs: Last Vital Signs Temp 98 F 04/05/25 11:32 Pulse 89 04/05/25 11:32 Resp 16 04/05/25 11:32 BP 148/66 H 04/05/25 11:32 Pulse Ox 98 04/05/25 11:32 Oxygen Delivery Method Room Air 04/05/25 11:32 BMI result Body Mass Index 37.0 Tobacco/Smoking Status: Tobacco use Status Tobacco use date assessed 04/05/25 04/05/25 11:25 Patient Tobacco Use Status Never used Tobacco 04/05/25 11:25 e-Cigarette/Vaping Use Never Used 04/05/25 11:25 PHQ-9: PHQ-9 Score PHQ-9: Total score 0 04/06/25 10:38 Thrive Assessment: Date of Thrive Assessment Date Thrive assessed 04/05/25 04/05/25 11:37 Coding Level of Care Code New Pt Level 4 (59852) Complex EM visit Add On G2211 Diagnoses Hypertension I10 Elevated cholesterol E78.00 Right knee pain M25.561 Osteoporosis M81.0 Assessment & Plan Assessment & Plan (1) Hypertension: Code(s): I10 - Essential (primary) hypertension Category: Medical Plan: To improved to 140/68. Given she has been without her lisinopril since last w [place], with likely uncontrolled. Continue lisinopril and hydrochlorothiazide. (2) Elevated cholesterol: Code(s): E78.00 - Pure hypercholesterolemia, unspecified Category: Medical Plan: Lipid panel ordered. She has been without atorvastatin. Will re-evaluate the need for statin medication. Continue diet low in saturated fats and highly processed foods. (3) Right knee pain: Code(s): M25.561 - Pain in right knee Category: Medical Plan: XR of the right knee ordered. Plan for physical therapy versus orthopedic referral pending results. May use ibuprofen and Tylenol as needed as well as ice and topical analgesics (4) Osteoporosis: Code(s): M81.0 - Age-related osteoporosis without current pathological fracture Category: Medical Plan: DEXA scan ordered. Continue calcium and vitamin-D. Recommend weight-bearing exercise Plan Follow-up in 4 months. Left be completed today. Remained plan as above Orders: Orders Complete Blood Count Auto Diff 04/05/25 E78.00 - Pure hypercholesterolemia, unspecified, I10 - Essential (primary) hypertension, M81.0 - Age-related osteoporosis without current pathological fracture Hemoglobin A1c 04/05/25 E78.00 - Pure hypercholesterolemia, unspecified, I10 - Essential (primary) hypertension, M81.0 - Age-related osteoporosis without current pathological fracture Liver Panel 04/05/25 E78.00 - Pure hypercholesterolemia, unspecified, I10 - Essential (primary) hypertension, M81.0 - Age-related osteoporosis without current pathological fracture Vitamin D 25-OH Total 04/05/25 E78.00 - Pure hypercholesterolemia, unspecified, I10 - Essential (primary) hypertension, M81.0 - Age-related osteoporosis without current pathological fracture XR DEXA axial skeleton Today M81.0 - Age-related osteoporosis without current pathological fracture Basic Metabolic Panel 04/05/25 E78.00 - Pure hypercholesterolemia, unspecified, I10 - Essential (primary) hypertension, M81.0 - Age-related osteoporosis without current pathological fracture Lipid Panel 04/05/25 E78.00 - Pure hypercholesterolemia, unspecified, I10 - Essential (primary) hypertension, M81.0 - Age-related osteoporosis without current pathological fracture XR knee RT 3V 04/05/25 M25.561 - Pain in right knee, W19.XXXA - Unspecified fall, initial encounter
[2025-04-05 11:27] VITALS: BMI 37.0
[2025-04-05 11:32] VITALS: BP 148/66; PULSE 89; RESP 16; TEMP 36.6; O2SAT 98
== END 2025-04-05 12:07 | disposition home or self-care (01) ==
LOC: HO.HMCHD 11:20
PROVIDERS: PCP Family Medicine; Visit Provider Physician Assistant
DX: I10 Essential (primary) hypertension (principal); E78.00 Pure hypercholesterolemia, unspecified; M25.561 Pain in right knee; M81.0 Age-related osteoporosis without current pathological fracture

== ENCOUNTER 2025-04-05 11:19 | Outpatient (REF) | payer OTHER, SELFPAY ==
--- NOTE | ~2025-04-05 | XR_ITS ---
EXAMINATION: XR KNEE, RIGHT CLINICAL INFORMATION: M25.561 - Pain in right knee COMPARISON: None available. TECHNIQUE: Three views of the right knee. FINDINGS: There is severe narrowing of the medial joint space. Lateral joint space and patellofemoral joint spaces are preserved. There is a joint effusion. There are marginal osteophytes along the medial joint line and mild lateral subluxation of the tibia. There are osteophytes involving medial femoral condyle in the intercondylar notch. Patellar osteophytes are also present. XR/XR knee RT 3V IMPRESSION: Severe osteoarthritis with small reactive joint effusion. Electronically signed by: Nikko Gregory MD 04/05/2025 01:40 PM EDT
[2025-04-05 12:49] LABS: MANUAL DIFF FLAG NO
[2025-04-05 13:50] LABS: Hematocrit 37.4 % (37.0-47.0); Hemoglobin 12.9 g/dl (12.0-16.0); Imm Gran Abs Auto 0.04 X10*3/uL (0.00-0.03); Imm Gran Pct Auto 0.4 % (0.0-0.4); Lymphocytes Absolute Auto 2.5 X10*3/uL (1.2-4.9); Mean Corpuscular HGB Conc 34.5 g/dl (31.0-35.0); Mean Corpuscular Hemoglobin 31.2 pg (27.0-33.0); Mean Corpuscular Volume 90.6 fL (80.0-98.0); NRBC Abs Auto 0.000 X10*3/uL (0.0-0.012); NRBC Pct Auto 0.0 /100WBC (0.0-0.2); Platelet Count 331 X10*3/uL (160-400); Red Blood Count 4.13 X10*6/uL (4.20-5.50); White Blood Count 10.0 X10*3/uL (4.8-10.8)
[2025-04-05 14:06] LABS: Total Hemoglobin (HGBA1C) 3382.9942 umol/L
[2025-04-05 14:35] LABS: Alanine Aminotransferase 23 U/L (0-31); Albumin Level 4.6 g/dL (3.5-5.0); Alkaline Phosphatase 120 U/L (39-117); Anion Gap 16 (12-20); Aspartate Amino Transferase 30 U/L (5-31); Blood Urea Nitrogen 22 mg/dL (9-16); Calcium 10.5 mg/dL (8.4-10.2); Carbon Dioxide 23 mmol/L (22-29); Chloride 105 mmol/L (96-108); Cholesterol 186 mg/dL (<200); Estimated Glomerular Filt Rate 46; HDL Cholesterol 40 mg/dL (>40); Potassium 3.8 mmol/L (3.3-5.1); Sodium 140 mmol/L (135-145); Total Protein 8.0 g/dL (6.5-8.0); Triglycerides 134 mg/dL (<150)
== END 2025-04-05 11:20 | disposition home or self-care (01) ==
LOC: HO.LAB 11:19
PROVIDERS: PCP Physician Assistant; Visit Provider Physician Assistant
DX: I10 Essential (primary) hypertension (principal); E78.00 Pure hypercholesterolemia, unspecified; M81.0 Age-related osteoporosis without current pathological fracture; M25.561 Pain in right knee; Z91.81 History of falling
CPT/HCPCS: 36415; 73562; 80048; 80061; 80076; 82306; 83036; 85025; 99202

== ENCOUNTER → 2025-04-05 12:50 | Outpatient (BNV) | payer OTHER, SELFPAY | PROVIDERS: PCP Physician Assistant; Visit Provider Radiology Diagnostic Radiology | DX: M25.461 Effusion, right knee (principal) | CPT/HCPCS: 73562 ==

== ENCOUNTER 2025-05-12 09:05 | Outpatient (AMB) | payer OTHER, SELFPAY ==
[2025-05-12 07:51] VITALS: BP 138/72; PULSE 74; TEMP 36.4; O2SAT 97; BMI 37.0
--- NOTE | 2025-05-12 07:51 | A.OFFPC_ITS ---
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 Accompanied by: Self / Same As Patient Allergies No Known Allergies Allergy (Verified 05/12/25 07:53) Tobacco use date assessed: 04/05/25 Fall risk assessment: 1 Fall in past year Last assessed Fall Risk: 05/12/25 Dental Screening Dental Screen Date: 05/12/25 Did you have a dental visit in the last 12 months?: No Did you have a dental problem in the last 6 months where you did not have access to dental care?: No HPI HPI Comments History of Present Illness Details 74-year-old female with history of hyper tension, monoclonal gammopathy, unspecified vasculitis, venous insufficiency, hypercholesterolemia presents to the office today for management of chronic conditions. She does have [facility] nurse following her at home. Hypercholesterolemia-has been without her atorvastatin 20 mg nightly since August as she states she ran out of the medication into not received refill. Given cholesterol levels were normal back in March, her CTA nurse questions whether she needs the medication though again she has not been the medication f or 8 months. Repeat lipid profile showed LDL of 120 and she was resumed on atorvastatin 20 mg Hypertension-diltiazem, hydrochlorothiazide, lisinopril blood pressure slightly elevated 148/66. She tells me that she has not had her lisinopril since last week Type 2 diabetes- new onset. A1c 7.3%. Has cut back on rice and beans. Daughter cooks all meals at home. Vasculitis-no recent recurrence Concerns: See HPI ROS: General: No fevers, malaise, unintentional weight loss HEENT: No blurred vision, diplopia. No sore throat, nasal congestion, rhinorrhea, sinus pain, ear pain Cardiovascular: No chest pain, palpitations, or leg edema Respiratory: No shortness of breath, wheezing, cough GI: No abdominal pain, nausea, vomiting, diarrhea, constipation, melena, hematochezia : No dysuria, hematuria, increased urinary frequency, decreased urinary output MSK: No myalgia, back pain.see hpi Neuro: No headaches, weakness, paresthesias Skin: No rashes or lesions EXAM: Constitutional - Awake and Alert, No apparent distress Eyes - PERRL Cardiovascular - S1S2, RRR, No edema Respiratory - Normal lung expansion, Normal respiratory effort, No respiratory distress, CTA bilaterally Extremities - no calf tenderness bilaterally, no swelling MSK-tenderness to palpation over the medial aspect of the right knee. No bony abnormality, joint laxity, erythema, warmth. Full extension, limited flexion Skin - Warm/Dry Neurological - Alert & oriented x3 Psychological - Appropriate affect [facility] Medical History Type 2 diabetes mellitus Leg pain, bilateral Osteoporosis Leukocytoclastic vasculitis Elevated cholesterol Hypertension Surgical History History of detached retina repair S/P carpal tunnel release Family History (Updated 05/12/25 @ 09:16 by Marj Martinez MA) Mother No problems noted. Father No problems noted. Social History Housing: House Patient Tobacco Use Status: Never used Tobacco e-Cigarette/Vaping Use: Never Used service: No Current occupational status: retired Current occupation: Right Handed Cognitive needs: Yes (cane) Hearing needs: Yes (bilateral hearing aids) Vision needs: Yes (Reading glasses) Questionnaire PHQ-9 Over the last 2 weeks, how often have you been bothered by any of the following problems? 1. Little interest or pleasure in doing things: not at all 2. Feeling down, depressed, or hopeless: not at all 3. Trouble falling or staying asleep, or sleeping too much: not at all 4. Feeling tired or having little energy: not at all 5. Poor appetite or overeating: not at all 6. Feeling bad about yourself - or that you are a failure or have let yourself or your family down: not at all 7. Trouble concentrating on things, such as reading the newspaper or watching television: not at all 8. Moving or speaking so slowly that other people could have noticed. Or the opposite - being so fidgety or restless that you have been moving around a lot more than usual: not at all 9. Thoughts that you would be better off or of hurting yourself in some way: not at all Total score: 0 Source: Developed by Drs. Jarod Morgan, Mago Garcias, Lazaro aLra and colleagues, with an educational penny from [employer]. Thrive Questionnaire Date Thrive assessed: 05/12/25 I am a: Patient Within the past 12 months, did the food you bought not last and you didn't have the money to get more?: Never true Within the past 12 months, did you worry whether your food would run out before you got money to buy more?: Never true Do you have trouble paying for medicines?: No Do you have trouble getting transportation to medical appointments?: No Do you have trouble paying your heating and electricity bill?: No Do you have trouble taking care of your child, family member or friend?: No Do you have trouble with day-to-day activities such as bathing, preparing meals, shopping, managing finances, etc.?: No Are you currently unemployed and looking for a job?: No Are you interested in more education?: No THRIVE Score: 0 AUDIT C Alcohol Use Questionnaire (AUDIT-C) 1. How often do you have a drink containing alcohol?: Never 3. How often do you have six or more drinks on one occasion?: Never Total Score: 0 CORAL-7 AMB Questionnaire CORAL-7 Date CORAL - 7 assessed: 05/12/25 Feeling nervous, anxious, or on edge: 0 = Not at all Not being able to stop or control worryin = Not at all Worrying too much about different things: 0 = Not at all Trouble relaxin = Not at all Being so restless that it is hard to sit still: 0 = Not at all Becoming easily annoyed or irritable: 0 = Not at all Feeling afraid as if something awful might happen: 0 = Not at all Total CORAL-7 score (0-4 normal; 5-9 mild; 10-14 moderate; 15-21 severe): 0 Source: Developed by Drs. Jarod Moragn, Lazaro Garcia and colleagues, with an educational penny from [employer]. Physical exam (Primary Care) Vital Signs: Last Vital Signs Temp 97.5 F 05/12/25 07:51 Pulse 74 05/12/25 07:51 BP 138/72 05/12/25 07:51 Pulse Ox 97 05/12/25 07:51 Oxygen Delivery Method Room Air 05/12/25 07:51 BMI result Body Mass Index 37.0 Tobacco/Smoking Status: Tobacco use Status Tobacco use date assessed 04/05/25 05/12/25 07:55 Patient Tobacco Use Status Never used Tobacco 05/12/25 07:55 e-Cigarette/Vaping Use Never Used 05/12/25 07:55 PHQ-9: PHQ-9 Score PHQ-9: Total score 0 05/12/25 11:37 Thrive Assessment: Date of Thrive Assessment Date Thrive assessed 05/12/25 05/12/25 07:55 Coding Level of Care Code Est Pt Level 4 (72597) Complex EM visit Add On G2211 Diagnoses Hypertension I10 Elevated cholesterol E78.00 Type 2 diabetes mellitus E11.9 Assessment & Plan Assessment & Plan (1) Hypertension: Code(s): I10 - Essential (primary) hypertension Category: Medical Plan: Controlled. Continue lisinopril and hydrochlorothiazide. (2) Elevated cholesterol: Code(s): E78.00 - Pure hypercholesterolemia, unspecified Category: Medical Plan: LDL had increased to 120 without her atorvastatin. Lipid panel ordered. Continue atorvastatin 20 mg (3) Type 2 diabetes mellitus: Code(s): E11.9 - Type 2 diabetes mellitus without complications Category: Medical Plan: Newly diagnosed. Educated on type 2 diabetes including diabetic diet, diabetes management, and potential complications with uncontrolled diabetes. Counseled on annual eye exams. At this time, we will continue with lifestyle mo difications. If A1c continues to rise, will add medications. She also desires referral to dietitian which is ordered. Advised to bring her daughter to the appointment given she has 1 cooking meals. Glucometer ordered and is advised to check fasting glucose levels every morning with goal being between 90-130 Plan Follow-up in 3 months with labs completed prior to visit. Orders: Orders Hemoglobin A1c 3 Months E11.9 - Type 2 diabetes mellitus without complications, E78.00 - Pure hypercholesterolemia, unspecified, I10 - Essential (primary) hypertension Basic Metabolic Panel 3 Months E11.9 - Type 2 diabetes mellitus without complications, E78.00 - Pure hypercholesterolemia, unspecified, I10 - Essential (primary) hypertension Lipid Panel 3 Months E11.9 - Type 2 diabetes mellitus without complications, E78.00 - Pure hypercholesterolemia, unspecified, I10 - Essential (primary) hypertension Referrals Grounds Caretaker Nutrition Referral E11.9 - Type 2 diabetes mellitus without complications Patient Instructions: Glucometer and supplies ordered- check FASTING glucose levels daily and write them down. Goal 90-130 Diabetic diet- check the Americans with Diabetes website Grounds Caretaker referral placed- If possible bring your daughter since she cooks
== END 2025-05-12 09:43 | disposition home or self-care (01) ==
LOC: HO.HMCHD 09:05
PROVIDERS: PCP Family Medicine; Visit Provider Physician Assistant
DX: I10 Essential (primary) hypertension (principal); E78.00 Pure hypercholesterolemia, unspecified; E11.9 Type 2 diabetes mellitus without complications

== ENCOUNTER → 2025-05-12 09:05 | Outpatient (BNVA) | payer OTHER, SELFPAY | PROVIDERS: PCP Family Medicine; Visit Provider Physician Assistant | DX: I10 Essential (primary) hypertension (principal); E78.00 Pure hypercholesterolemia, unspecified; E11.9 Type 2 diabetes mellitus without complications; Z79.899 Other long term (current) drug therapy; Z13.39 Encounter for screening examination for other mental health and behavioral disorders; Z13.30 Encounter for screening examination for mental health and behavioral disorders, unspecified | CPT/HCPCS: 96127; 99212 ==

== ENCOUNTER 2025-05-23 13:16 | Outpatient (AMB) | payer OTHER, SELFPAY ==
--- NOTE | 2025-05-23 13:31 | A.OFFVIS_ITS ---
VS Expanded 05/23/25 13:32 Height 4 ft 11 in Weight 180 lb 15.992 oz BMI 36.6 Intake Visit Reasons: Type 2 diabetes mellitus without complications Allergies No Known Allergies Allergy (Verified 05/12/25 07:53) Nutrition Presentation Details: Pt presents for MNT for New onset T2DM BS Monitoring Most Recent Diabetes Results: Cholesterol, (<200) 186 mg/dL 04/05/25 HDL Cholesterol, (>40) 40 mg/dL L 04/05/25 Triglycerides, (<150) 134 mg/dL 04/05/25 Creatinine, (0.5-1.4) 1.16 mg/dL 04/05/25 BUN, (9-16) 22 mg/dL H 04/05/25 Sodium, (135-145) 140 mmol/L 04/05/25 Potassium, (3.3-5.1) 3.8 mmol/L 04/05/25 Chloride, (96-108) 105 mmol/L 04/05/25 Carbon Dioxide, (22-29) 23 mmol/L 04/05/25 Calcium, (8.4-10.2) 10.5 mg/dL H 04/05/25 AST, (5-31) 30 U/L 04/05/25 ALT, (0-31) 23 U/L 04/05/25 Total Protein, (6.5-8.0) 8.0 g/dL 04/05/25 Albumin, (3.5-5.0) 4.6 g/dL 04/05/25 YPC-Tbbod[facility]-Vm.Jeor Equation Height: 4 ft 11 in Weight: 181 lb Resting Metabolic Rate: 1221.89 Calculated Activity Level: Sedentary Calories Needed to Maintain Weight: 1466.27 Diagnosis Nutrition problem #1: food nutri know defi As related to (etiology) #1: diagnosis As evidenced by (sign/symptom) #1: knowledge deficit of diet (as new onset T2DM) [facility] Medical History Type 2 diabetes mellitus Leg pain, bilateral Osteoporosis Leukocytoclastic vasculitis Elevated cholesterol Hypertension Surgical History History of detached retina repair S/P carpal tunnel release Family History (Updated 05/12/25 @ 09:16 by Marj Martinez MA) Mother No problems noted. Father No problems noted. Social History Housing: House Patient Tobacco Use Status: Never used Tobacco e-Cigarette/Vaping Use: Never Used service: No Current occupational status: retired Current occupation: Right Handed Cognitive needs: Yes (cane) Hearing needs: Yes (bilateral hearing aids) Vision needs: Yes (Reading glasses) Assessment & Plan Assessment & Plan (1) Type 2 diabetes mellitus: Code(s): E11.9 - Type 2 diabetes mellitus without complications Category: Medical Plan: current wt: 82 kg ( 06/10 ) est kcal needs as per MSJ: 1500 est protein needs as per 1 g/kg BW: 80 est fluid needs as per 30 ml/kg BW: 2500 Recommended fiber > 12 g /day and gradually increase up to 25-28 g /day or as tolerated Nutrition topics discussed : Reviewed (R), Pt verbalized understanding (V) , not applicable (N/A) R, : Healthy Plate Method Concept: R, : Carbohydrates: food sources of carbohydrates, relationship of carbohydrates to blood glucose, fatty liver GI health. Recommended total amount of carbohydrates per meals and snack. Differences between simple carbohydrates and complex carbohydrates R, : Lean protein foods including vegan , vegetarian sources of protein. Benefits of protein (including but not limited to healing, nutritional value , benefits in weight loss, glucose control R, V, N/A: Fats : Source of fats, benefits of fats. Difference between saturated and unsaturated fats. Saturated fats and its contribution to inflammation R, V, N/A: Fiber: food sources and role of fiber in the diet (including but not limited to its role as a prebiotic, benefits in constipation, role in IBS , role in glucose control and cholesterol level) R, V, N/A: Hydration: role of hydration and prevention of dehydration or over hydration. Foods and water content. R, V, N/A: Vitamins and Minerals in foods and supplements R, V, N/A: Interpreting food labels, including serving size, macronutrients, vitamins, minerals, allergens, ingredient list , % daily value Patient Instructions: Cut down on added sugars (in coffee, beverages, pastries) Follow healthy plate method at dinner Keep hydrated by having water, dilute juices with water, milk, low sodium soups see 1500 [place]ina meal plan Coding Level of Care Code Nutr Indiv Intake (22262) Diagnoses Type 2 diabetes mellitus E11.9 Time Spent (min) 30
[2025-05-23 13:32] VITALS: BMI 36.6
[2025-06-05 09:00] VITALS: BMI 36.6
== END 2025-05-23 14:08 | disposition home or self-care (01) ==
LOC: HO.ENCR 13:16
PROVIDERS: PCP Family Medicine; Visit Provider Dietitian, Registered
DX: E11.9 Type 2 diabetes mellitus without complications (principal)

== ENCOUNTER → 2025-05-23 13:16 | Outpatient (BNVA) | payer OTHER, SELFPAY | PROVIDERS: PCP Family Medicine; Visit Provider Dietitian, Registered | DX: E11.9 Type 2 diabetes mellitus without complications (principal) | CPT/HCPCS: 97802 ==

== ENCOUNTER 2025-08-15 08:47 | Emergency (ER) | payer OTHER, SELFPAY ==
--- NOTE | ~2025-08-15 | XR_ITS ---
EXAMINATION: XR ANKLE, LEFT CLINICAL INFORMATION: pain COMPARISON: None available. TECHNIQUE: AP, lateral, and mortise views of the left ankle. FINDINGS: No definite fracture, dislocation, or suspicious bone lesion. Normal alignment. The ankle mortise is intact. The talar dome is normal. The subtalar joints are normal. There is a small plantar calcaneal spur. There is no ankle joint effusion. There is mild diffuse subcutaneous soft tissue edema present. XR/XR ankle LT min 3V IMPRESSION: 1. No acute bony abnormalities of the left ankle. 2. Diffuse subcutaneous soft tissue edema. Electronically signed by: Kedar Cartagena MD 08/15/2025 09:55 AM EZEQUIEL
--- NOTE | ~2025-08-15 | XR_ITS ---
EXAMINATION: XR ANKLE, RIGHT CLINICAL INFORMATION: pain COMPARISON: None available. TECHNIQUE: AP, lateral, and mortise views of the right ankle. FINDINGS: No definite fracture, dislocation, or suspicious bone lesion. Normal alignment. The ankle mortise is intact. The talar dome is normal. The subtalar joints are normal. There is a small to moderate-sized plantar calcaneal spur. There is no ankle joint effusion. There is mild diffuse subcutaneous soft tissue edema present. XR/XR ankle RT min 3V IMPRESSION: 1. No acute bony abnormalities of the right ankle. 2. Diffuse subcutaneous soft tissue edema. Electronically signed by: Kedar Cartagena MD 08/15/2025 09:57 AM EST
[2025-08-15 08:55] VITALS: BP 166/76; PULSE 110; O2SAT 95
[2025-08-15 09:13] VITALS: BP 138/71; PULSE 104; RESP 16; TEMP 37; O2SAT 97; BMI 34.9
--- NOTE | 2025-08-15 09:16 | ED.GENADULT ---
[facility] - General Adult General Chief complaint: General Medical Stated complaint: bilateral ankle pain for months Time Seen by Provider: 08/15/25 16:16 Source: patient Mode of arrival: ambulatory Limitations: no limitations History of Present Illness ED Provider: Dr. Licona [facility] narrative: 75-year-old female history of diabetes, osteoarthritis, osteoporosis hypertension hyperlipidemia presented hospital today for evaluation of bilateral ankle pain. Patient stated this occurred last night. When she was trying to get out bed. She was using a walker. She has difficulty lifting herself out of bed. She has immediate pain in her foot and ankle when she weight bears. This pain is bilaterally. Denies any trauma Related Data Home Medications ?Medication ?Instructions ?Recorded ?Confirmed cholecalciferol (vitamin D3) 50 1 cap PO DAILY 06/24/21 08/15/25 mcg (2,000 unit) capsule (Vitamin D3) diltiazem HCl 360 mg 1 cap PO DAILY 06/24/21 08/15/25 capsule,extended release 24 hr Previous Rx's ?Medication ?Instructions ?Recorded atorvastatin 20 mg tablet 20 mg PO BEDTIME 90 days #90 tabs 07/19/25 lisinopril 20 mg tablet 20 mg PO DAILY 90 days #90 tabs 07/19/25 walker #1 ea 08/16/25 Allergies Allergy/AdvReac Type Severity Reaction Status Date / Time No Known Allergies Allergy Verified 08/15/25 09:16 Review of Systems Review of Systems: Pertinent review of systems as mentioned in [facility]. All other system otherwise negative. [facility] Past Medical History [facility] Narrative: Medical history as mentioned in HPI Medical History Type 2 diabetes mellitus Leg pain, bilateral Osteoporosis Leukocytoclastic vasculitis Elevated cholesterol Hypertension Surgical History History of detached retina repair S/P carpal tunnel release Family History Family History (Updated 05/12/25 @ 09:16 by Marj Martinez MA) Mother No problems noted. Father No problems noted. Social History Social History Housing: House Patient Tobacco Use Status: Never used Tobacco Smoked in Last 30 Days: No e-Cigarette/Vaping Use: Never Used Use of substances other than those prescribed or required for medical reasons: No Advance Directives: No Advance Directives Information Provided: No service: No Current occupational status: retired Current occupation: Right Handed Cognitive needs: Yes (cane) Hearing needs: Yes (bilateral hearing aids) Vision needs: Yes (Reading glasses) Physical Exam ED Exam Exam: General: Pleasant, no distress, interacting appropriately Head: Normacephalic, atraumatic ENT: oral mucosa moist, neck supple, no tracheal deviation Cardiovascular: regular rate, regular rhythm, no murmurs, rubbing, gallops Respiratory: CTAB, no wheeze, rales, rhonchi Extremities: CMS intact in bilateral lower extremities, there is pain in the midfoot on exam. There was also with some warmness on the mid foot to ankle. There was also pain on palpation of the ankle. Patient does have range of motion intact. No sign of erythema or cellulitic changes on her feet bilaterally. Neurological: Awake and alert, no facial droop noted Skin: Warm and dry Psychiatric: Appropriate mood and thoughts Vital Signs: Vital Signs - 24 hr 08/15/25 16:16 08/15/25 18:14 08/15/25 20:35 Temperature 98.3 F 98.8 F 98.1 F Pulse Rate 100 96 91 Respiratory Rate 16 16 16 Blood Pressure 144/77 H 149/73 H 145/63 H Pulse Oximetry 96 94 94 Oxygen Delivery Method Room Air Room Air Room Air 08/15/25 22:14 08/16/25 05:51 08/16/25 10:12 Temperature 98.9 F 98.1 F Pulse Rate 92 82 82 Respiratory Rate 16 18 Blood Pressure 144/73 H 134/88 134/88 Pulse Oximetry 99 94 Oxygen Delivery Method Room Air Room Air 08/16/25 10:13 08/16/25 12:08 08/16/25 14:23 Temperature 98.1 F 98.1 F Pulse Rate 90 77 Respiratory Rate 20 14 Blood Pressure 134/88 150/70 H 120/53 L Pulse Oximetry 92 95 Oxygen Delivery Method Room Air Room Air BMI result Body Mass Index 34.9 Course Course Course Narrative: This is a Rapid Medical Examination (RME) performed by Samantha Dodge PA-C in triage. Full HPI, ROS, assessment and treatment plan per primary provider in the Main ED. Hx: 75 yo F BIBA for eval of b/l ankle pain which began last night while she attempted to get OOB to use commode. reports pain x months, worsening last night. LEs felt weak. PE/vitals: pitting edema to b/l LEs Plan: labs, xrd Reevaluation(s) Reevaluation #1: Time: 16:13 Date: 08/16/25 Provider: Landon Sosa PA-C patient in physician observation for case management needs. No overnight concerns from nursing. patient was evaluated by Physical therapy this morning and suggested patient return home with VNA services with rolling walker for ambulation. patient will be discharged with prescription for rolling walker, with instructions to follow up with her primary care provider, and strict ED return precautions. Medications Administered Generic Name Dose Route Start Last Admin Trade Name Freq PRN Reason Stop Dose Admin Acetaminophen 975 mg 08/15/25 21:00 08/16/25 14:40 Acetaminophen 325 Mg Tablet PO 975 mg Q8H EDEL Administration Diltiazem HCl 360 mg 08/16/25 09:00 08/16/25 10:12 Diltiazem Hcl Cd 180 Mg Cap.Er.24h PO 360 mg DAILY EDEL Administration Protocol Enoxaparin Sodium 40 mg 08/16/25 09:00 08/16/25 10:12 Enoxaparin Sodium 40 Mg/0.4 Ml Syringe SUBCUT 40 mg DAILY EDEL Administration Lisinopril 20 mg 08/16/25 09:00 08/16/25 10:13 Lisinopril 20 Mg Tablet PO 20 mg DAILY EDEL Administration Protocol Oxycodone HCl 5 mg 08/15/25 20:51 08/16/25 16:01 Oxycodone Hcl Immed Release 5 Mg Tablet PO 5 mg Q4H PRN Administration Pain, Severe (Pain Scale 7-10) Prednisone 20 mg 08/16/25 09:00 08/16/25 10:13 Prednisone 20 Mg Tablet PO 08/22/25 09:00 20 mg DAILY EDEL Administration Vitamin D 50 mcg 08/16/25 09:00 08/16/25 10:12 Cholecalciferol (Vitamin D3) 25 Mcg Tablet PO 50 mcg DAILY EDEL Administration Discontinued Medications Generic Name Dose Route Start Last Admin Trade Name Freq PRN Reason Stop Dose Admin Dexamethasone Sodium Phosphate 6 mg 08/15/25 19:07 08/15/25 19:28 Dexamethasone Sod Phosphate 4 Mg/Ml Vial IVPUSH 08/15/25 19:08 6 mg ONCE ONE Administration Ketorolac Tromethamine 15 mg 08/15/25 19:07 08/15/25 19:28 Ketorolac Tromethamine 15 Mg/Ml Vial IVPUSH 08/15/25 19:08 15 mg ONCE ONE Administration Lidocaine 1 patch 08/15/25 16:58 08/15/25 17:11 Lidocaine 4 % Patch Adh..Patch TRANSDERMA 08/15/25 16:59 1 patch ONCE ONE Administration Protocol Lidocaine HCl 1 appl 08/15/25 16:59 08/15/25 17:16 Lidocaine Hcl 4 % Topical 50 Ml Solution TOPICAL 08/15/25 17:00 Not Given ONCE ONE Protocol Naproxen 250 mg 08/15/25 16:49 08/15/25 16:56 Naproxen 250 Mg Tablet PO 08/15/25 16:50 250 mg ONCE ONE Administration Oxycodone HCl 5 mg 08/15/25 16:57 08/15/25 17:10 Oxycodone Hcl Immed Release 5 Mg Tablet PO 08/15/25 16:58 5 mg ONCE ONE Administration Prednisone 40 mg 08/15/25 16:49 08/15/25 16:56 Prednisone 20 Mg Tablet PO 08/15/25 16:50 40 mg ONCE ONE Administration Medical Decision Making Medical Decision Making MDM Narrative: 75-year-old female history of diabetes hypertension hyperlipidemia osteoarthritis presented hospital today for bilateral foot pain. I have low suspicion for septic arthritis, low suspicion for cellulitis. Patient does have leukocytosis on lab work. No sign of fever. The patient does not appear to be toxic, exam. I do not think patient has sepsis. I suspect patient has foot pain and ankle pain is secondary to a inflammatory process likely arthritis versus gout. Patient has pulses in bilateral feet. I do not think is limb ischemia. Low suspicion for septic arthritis as her pain is bilaterally. This will be abnormal for presentation of septic arthritis. Patient does have intact range of motion on exam. We will plan to give patient a dose of oxycodone here, dose of naproxen will be given to the patient and a dose of prednisone as well. Patient's lab work did show some transaminitis consistent with fatty liver. Patient did have some improvement with the IV Toradol, however patient still have significant tenderness when she weight bears. Plan to give patient a dose IV Decadron here. We will plan to keep patient for Phys Obs. I think patient has bilateral arthritis in her feet We will have PT case management involvement for the patient. Code status is full code here. Diet order will be placed for the patient. DVT prophylaxis will be ordered for the patient as well. Differential Diagnosis Differential Diagnoses: The differential diagnosis associated with the presentation includes Arthritis, osteoarthritis, cellulitis, septic arthritis Lab Data MDM Lab Attestation statement: I reviewed the patient's lab results. 08/15/25 09:24 08/15/25 09:24 Labs: Lab Results 08/15/25 Range/Units 09:24 WBC 16.5 H (4.8-10.8) X10*3/uL RBC 4.06 L (4.20-5.50) X10*6/uL Hgb 12.6 (12.0-16.0) g/dl Hct 37.1 (37.0-47.0) % MCV 91.4 (80.0-98.0) fL MCH 31.0 (27.0-33.0) pg MCHC 34.0 (31.0-35.0) g/dl RDW 11.8 (11.0-16.0) % Plt Count 328 (160-400) X10*3/uL MPV 9.3 L (9.4-12.3) fL Immature Gran % (Auto) 0.5 H (0.0-0.4) % Neut % (Auto) 86.2 H (45-73) % Lymph % (Auto) 6.2 L (20-40) % [place] % (Auto) 6.7 (2-11) % Eos % (Auto) 0.0 (0-4) % Baso % (Auto) 0.4 (0-2) % Lymph # (Auto) 1.0 L (1.2-4.9) X10*3/uL [place] # (Auto) 1.1 (0.1-1.2) X10*3/uL Eos # (Auto) 0.0 (0.0-0.4) X10*3/uL Baso # (Auto) 0.1 (0.0-0.2) X10*3/uL Abs Immat Gran (auto) 0.08 H (0.00-0.03) X10*3/uL Absolute Neuts (auto) 14.2 H (2.0-8.3) x10*3/uL Absolute Nucleated RBC 0.000 (0.0-0.012) X10*3/uL Nucleated RBC % (auto) 0.0 (0.0-0.2) /100WBC Sodium 139 (135-145) mmol/L Potassium 4.4 (3.3-5.1) mmol/L Chloride 105 (96-108) mmol/L Carbon Dioxide 24 (22-29) mmol/L Anion Gap 14 (12-20) BUN 23 H (9-16) mg/dL Creatinine 1.27 (0.5-1.4) mg/dL Estim Creat Clear Calc 34.1 Estimated GFR 41 Random Glucose 199 H (60-115) mg/dL Calcium 10.1 (8.4-10.2) mg/dL Magnesium 1.6 (1.6-2.6) mg/dL Total Bilirubin 0.6 (0.0-1.0) mg/dL AST 47 H (5-31) U/L ALT 59 H (0-31) U/L Alkaline Phosphatase 162 H (39-117) U/L NT-Pro-B Natriuret Pep 151.5 (<300) pg/mL Total Protein 8.1 H (6.5-8.0) g/dL Albumin 4.4 (3.5-5.0) g/dL Independent Interpretation I performed an independent interpretation of an: Plain X-Ray Radiology Impression Discussion of test interpretation with radiology: I have reviewed the radiologist's reading. Discharge Plan Discharge Clinical Impression: Arthritis Patient Disposition: Home, Self-Care Additional Instructions: You were evaluated by physical therapy today and were found to be safe to return home with services for assistance. I have prescribed a rolling walker for ambulation you can pick this up at the pharmacy. To manage pain at home you can take 500 mg of Tylenol, and 400 mg of ibuprofen every 6 hours. Please follow up with your primary care doctor for additional management of arthritis. Return to the emergency department if you experience fevers over 100.4?, worsening pain of your ankles, chest pain, shortness of breath, pain of your calves, swelling of your lower extremities, or any new/ worsening/ concerning symptoms. Prescriptions: New (DME) walker Misc See Rx Instructions .Route Qty: 1 0RF Rx Instructions: As directed No Action lisinopril 20 mg tablet 20 mg PO DAILY 90 Days Qty: 90 0RF atorvastatin 20 mg tablet 20 mg PO BEDTIME 90 Days Qty: 90 0RF diltiazem HCl 360 mg capsule,extended release 24hr 1 cap PO DAILY cholecalciferol (vitamin D3) [Vitamin D3] 50 mcg (2,000 unit) capsule 1 cap PO DAILY Referrals: [facility] [Outside] Print Language: Vietnamese
[2025-08-15 09:33] LABS: MANUAL DIFF FLAG NO
[2025-08-15 09:35] LABS: Hematocrit 37.1 % (37.0-47.0); Hemoglobin 12.6 g/dl (12.0-16.0); Imm Gran Abs Auto 0.08 X10*3/uL (0.00-0.03); Imm Gran Pct Auto 0.5 % (0.0-0.4); Lymphocytes Absolute Auto 1.0 X10*3/uL (1.2-4.9); Mean Corpuscular HGB Conc 34.0 g/dl (31.0-35.0); Mean Corpuscular Hemoglobin 31.0 pg (27.0-33.0); Mean Corpuscular Volume 91.4 fL (80.0-98.0); NRBC Abs Auto 0.000 X10*3/uL (0.0-0.012); NRBC Pct Auto 0.0 /100WBC (0.0-0.2); Platelet Count 328 X10*3/uL (160-400); Red Blood Count 4.06 X10*6/uL (4.20-5.50); White Blood Count 16.5 X10*3/uL (4.8-10.8)
[2025-08-15 10:05] LABS: Alanine Aminotransferase 59 U/L (0-31); Albumin Level 4.4 g/dL (3.5-5.0); Alkaline Phosphatase 162 U/L (39-117); Anion Gap 14 (12-20); Aspartate Amino Transferase 47 U/L (5-31); Blood Urea Nitrogen 23 mg/dL (9-16); Calcium 10.1 mg/dL (8.4-10.2); Carbon Dioxide 24 mmol/L (22-29); Chloride 105 mmol/L (96-108); Creatinine Clr Calc Pharmacy 34.1; Estimated Glomerular Filt Rate 41; Magnesium 1.6 mg/dL (1.6-2.6); Potassium 4.4 mmol/L (3.3-5.1); Sodium 139 mmol/L (135-145); Total Protein 8.1 g/dL (6.5-8.0)
[2025-08-15 10:11] LABS: NT Pro B Type Natriuretic Pept 151.5 pg/mL (<300)
[2025-08-15 16:16] VITALS: BP 144/77; PULSE 100; RESP 16; TEMP 36.8; O2SAT 96
[2025-08-15] MEDS: oxyCODONE HCl Immed Release 5 MG TABLET PO (17:10)
[2025-08-15] MEDS: Lidocaine 4 % Patch ADH..PATCH 1 PATCH TRANSDERMA (17:11)
[2025-08-15 18:14] VITALS: BP 149/73; PULSE 96; RESP 16; TEMP 37.1; O2SAT 94
[2025-08-15 20:35] VITALS: BP 145/63; PULSE 91; RESP 16; TEMP 36.7; O2SAT 94
--- NOTE | 2025-08-15 21:22 | MHC.CM.ED ---
CM met with patient to discuss discharge planning. Pt is A&Ox3. Lives with her daughter, grandchildren and 2 cats. She is normally independent at home. Has no services. Uses a cane, walker, hearing aides, glasses and a commode. HCP is on file. HCP/daughter Kandi Dudley ([phone]). PCP verified. Has [employer]. Her volunteer services coordinator is Maryam Araujo ([phone]. Pt is unable to stand at bedside with bilateral ankle pain. PT is pending. Pt is agreeable to STR if recommended. Pt has not been to rehab. Will place local referrals.
[2025-08-15 22:14] VITALS: BP 144/73; PULSE 92; RESP 16; TEMP 37.2; O2SAT 99
[2025-08-16] VITALS (7 sets, daily range): BP systolic 120–150; BP diastolic 53–88; PULSE 77–90; RESP 14–20; TEMP 36.3–36.7; O2SAT 92–95
[2025-08-16] MEDS: dilTIAZem HCL CD 180 MG CAP.ER.24H 360 MG PO (10:12)
--- NOTE | 2025-08-16 11:59 | PC.NURSE ---
Late entry for 9am. Pt was requesting comfortably while in webster bed. Offered pain meds but declined them at that time. Ankles are swollen but not red/warm. Denies trauma. Palpable pedal pulses. Awaits PT eval.
--- NOTE | 2025-08-16 12:31 | MHC.CM.PN ---
Addendum entered by Janeen Romero 08/16/25 14:30: [facility] HAS A DELAY IN PT SERVICES OF APPROXIMATELY 1 WEEK. WILL GO WITH ANOTHER AGENCY TO AVOID THE DELAY IN SOC. [facility] HAS ACCEPTED PATIENT. Addendum entered by Janeen Romero 08/16/25 13:11: BLS/[facility] ARRANGED FOR 4PM THIS EVENING, [employer] [facility] AUTH RECEIVED, BOOKING ID# [id number]. Original Note: PT EVALUATED PATIENT, AND REC HOME WITH SERVICES, PATIENT AWARE AND IN AGREEMENT. VNA REFERRAL SENT TO [facility], AWAITING AGENCY ACCEPTANCE. PATIENT WILL TRANSPORT HOME VIA BLS/[facility] TODAY.
--- NOTE | 2025-08-16 14:47 | PHA.MEDREC ---
Addendum entered by Ana Angeles RPh 08/16/25 14:58: Reviewed by [facility] Original Note: Pharmacy Consult ? Medication Reconciliation Pharmacy reviewed med rec done by nursing. Spoke with pt and she confirmed she has not taken her Hydrochlorothiazide in over a month and states her dr has been giving her a hard time on filling that med.
[2025-08-16] MEDS: oxyCODONE HCl Immed Release 5 MG TABLET PO (16:01)
== END 2025-08-16 17:06 | disposition home or self-care (01) ==
PROVIDERS: Physician Assistant Medical; Emergency Provider Student in an Organized Health Care Education/Training Program; PCP Physician Assistant
DX: M19.072 Primary osteoarthritis, left ankle and foot (principal); M19.071 Primary osteoarthritis, right ankle and foot; M25.572 Pain in left ankle and joints of left foot; M25.571 Pain in right ankle and joints of right foot; E11.9 Type 2 diabetes mellitus without complications; I10 Essential (primary) hypertension; E78.5 Hyperlipidemia, unspecified; D72.829 Elevated white blood cell count, unspecified; Z79.02 Long term (current) use of antithrombotics/antiplatelets; Z79.899 Other long term (current) drug therapy
CPT/HCPCS: 36415; 73610; 80053; 83735; 83880; 85025; 96372; 96374; 96375; 97161; 99284; J1100; J1650; J1885

== ENCOUNTER → 2025-08-15 09:15 | Outpatient (BNV) | payer OTHER, SELFPAY | PROVIDERS: Visit Provider Radiology Diagnostic Radiology | DX: R60.0 Localized edema (principal) | CPT/HCPCS: 73610 ==